=== PATIENT | female | born 1975 | race Caucasian/White ===

== ENCOUNTER 2018-12-09 11:57 | Day surgery (SDC) | payer OTHER ==
[~2018-12-09] VITALS: Ht 165.1 cm; Wt 89.0 kg
[~2018-12-09 11:57] MED LIST: AZAT50; DIPH50; DULO30; INFLECTRA100 MG; Methotrexa25 MG/1 ML; PRED5
--- NOTE | 2018-12-09 17:02 | NUR ---
12/09/18 1702 Tony Rogers LATE ENTRY NARRATIVE PATIENT RESTING IN SDU RECLINER, VSS, TOLERATING PO FLUIDS WELL, MOTHER AND FRIEND AT CHAIRSIDE. DISCHARGE INSTRUCTIONS REVIEWED WITH PATIENT, MOTHER AND FRIEND, NO QUESTIONS AT THIS TIME. NURSE ASSISTED PATIENT WALK OUT TO HER RIDE HOME.
== END 2018-12-09 14:11 | disposition home or self-care (01) ==
LOC: ORSCSDS 11:57
PROVIDERS: Ophthalmology
PROC: 08RK3JZ Replacement of Left Lens with Synthetic Substitute, Percutaneous Approach (ICD-10-PCS; principal; 2018-12-09 14:00)
DX: H25.12 Age-related nuclear cataract, left eye (principal); Z79.899 Other long term (current) drug therapy
CPT/HCPCS: J2001; J2250; J3010; V2632

== ENCOUNTER 2019-05-30 17:32 | Emergency (ER) | payer OTHER ==
[~2019-05-30] VITALS: Ht 165.1 cm; Wt 88.5 kg
[2019-05-30 17:57] LABS: BASOPHILS ABSOLUTE AUTO 0.03 K/mm3 (0.00-0.23); BASOPHILS PERCENT AUTO 0 % (0-2); EOSINOPHILS ABSOLUTE AUTO 0.17 K/mm3 (0.00-0.68); EOSINOPHILS PERCENT AUTO 2 % (0-6); Hematocrit 44.3 % (33.0-51.0); Hemoglobin 14.6 g/dL (11.5-16.0); IMMATURE GRAN ABSOLUTE AUTO 0.01 K/mm3 (0.00-0.10); IMMATURE GRAN PERCENT AUTO 0 % (0-1); LYMPHOCYTES ABSOLUTE AUTO 2.82 K/mm3 (0.84-5.20); LYMPHOCYTES PERCENT AUTO 36 % (21-46); MONOCYTES ABSOLUTE AUTO 0.77 K/mm3 (0.16-1.47); MONOCYTES PERCENT AUTO 10 % (4-13); Mean Corpuscular HGB 30.7 pg (26.0-34.0); Mean Corpuscular Volume 93 fL (80-100); Mean Platelet Volume 9.7 fL (9.1-12.4); NEUTROPHILS ABSOLUTE AUTO 3.96 K/mm3 (1.96-9.15); NEUTROPHILS PERCENT AUTO 51 % (41-73); Platelet Count 264 K/mm3 (150-400); RDW Coefficient Variation 12.4 % (11.7-14.2); RDW Standard Deviation 42.9 fL (35.1-46.3); Red Blood Cell Count 4.75 M/mm3 (3.80-5.20); White Blood Cell Count 7.76 K/mm3 (4.00-11.30)
[2019-05-30 18:19] LABS: Alanine Aminotransfer (ALT/SGP 30 U/L (12-78); Albumin, Blood 4.1 g/dL (3.4-5.0); Albumin/Globulin Ratio 1.1 (0.8-1.8); Alk Phos 61 U/L (50-136); Anion Gap 8 mmol/L (6-16); Aspartate Aminotrans (AST/SGOT 20 U/L (12-37); Bilirubin, Total 0.5 mg/dL (0.1-1.0); Blood Urea Nitrogen 15 mg/dL (8-24); Bun/Creatinine Ratio 14.2 (12.0-20.0); CO2, Blood 25 mmol/L (21-32); Chloride, Blood 105 mmol/L (98-108); Creatinine, Blood 1.06 mg/dL (0.40-1.00); Globulin, Blood 3.8 g/dL (2.2-4.0); Glomerular Filtration Rate >60 (60-); Glucose, Blood 107 mg/dL (70-99); Sodium, Blood 138 mmol/L (136-145); Total Protein, Blood 7.9 g/dL (6.4-8.2)
[2019-05-30] MEDS ORDERED: [UNRECOGNIZED DRUG - REMARK] (19:00)
[2019-05-30] MEDS ORDERED: PRED10 PO (19:33)
[2019-05-30] MEDS ORDERED: Percocet 5-3251 EACH PO (21:58)
[2019-07-20] MEDS ORDERED: DULO60 PO (12:34)
[2019-07-20] MEDS ORDERED: AZAT50 PO (12:35)
[2019-07-20] MEDS ORDERED: INFLECTRA100 MG IV (12:35)
== END 2019-05-30 23:11 | disposition home or self-care (01) ==
LOC: ER 17:32
PROVIDERS: Emergency Medicine
DX: K50.90 Crohn's disease, unspecified, without complications (principal); R19.00 Intra-abdominal and pelvic swelling, mass and lump, unspecified site; Z79.899 Other long term (current) drug therapy
CPT/HCPCS: 36415; 74177; 80053; 83690; 85025; 96361; 96374-59; 96375; 96376; 99284-25; A9270; J2270; J2405; J3010; J7030; Q9967

== ENCOUNTER 2019-07-28 11:43 | Day surgery (SDC) | payer OTHER ==
[~2019-07-28] VITALS: Ht 167.6 cm; Wt 88.1 kg
[~2019-07-28 11:43] MED LIST changes: +AZAT50 PO; +DULO60 PO; +INFLECTRA100 MG IV; +PRED10 PO; +Percocet 5-3251 EACH PO; +[UNRECOGNIZED DRUG - REMARK]
== END 2019-07-28 15:00 | disposition home or self-care (01) ==
LOC: ORSCSDS 11:43
PROVIDERS: Internal Medicine Gastroenterology
PROC: 0DBE8ZX Excision of Large Intestine, Via Natural or Artificial Opening Endoscopic, Diagnostic (ICD-10-PCS; principal; 2019-07-28 13:15)
PROC: 0DBB8ZX Excision of Ileum, Via Natural or Artificial Opening Endoscopic, Diagnostic (ICD-10-PCS; principal; 2019-07-28 13:15)
DX: K50.80 Crohn's disease of both small and large intestine without complications (principal); K64.8 Other hemorrhoids; F43.10 Post-traumatic stress disorder, unspecified; Z79.899 Other long term (current) drug therapy
CPT/HCPCS: 88305; J2704; J7120

== ENCOUNTER → 2019-09-30 | Outpatient (CLI) | payer OTHER ==
[~2019-09-30] MED LIST changes: +ALBU90OI INH; +BENZ100A PO
[2019-10-04 15:07] LABS: HPV 16 Negative (Negative); HPV 18 Negative (Negative); HPV OTHER HR TYPES Positive (Negative)
== END | disposition home or self-care (01) ==
LOC: LAB SHORT 09:45 → PLD 09:45
PROVIDERS: Obstetrics & Gynecology
DX: Z01.419 Encounter for gynecological examination (general) (routine) without abnormal findings (principal)
CPT/HCPCS: 87624; 87625; G0123

== ENCOUNTER 2019-11-06 18:52 | Emergency (ER) | payer OTHER ==
[~2019-11-06] VITALS: Ht 165.1 cm; Wt 85.7 kg
[~2019-11-06 18:52] MED LIST changes: -ALBU90OI INH; -BENZ100A PO
[2019-11-06] MEDS ORDERED: BENZ100A PO ×2 (18:59→19:02)
[2019-11-06] MEDS ORDERED: ALBU90OI INH ×2 (18:59→19:02)
== END 2019-11-06 19:00 | disposition home or self-care (01) ==
LOC: ER 18:52
DX: J40 Bronchitis, not specified as acute or chronic (principal); Z79.899 Other long term (current) drug therapy
CPT/HCPCS: 99283

== ENCOUNTER → 2019-11-08 | Outpatient (CLI) | payer OTHER ==
[~2019-11-08] MED LIST changes: +ALBU90OI INH; +BENZ100A PO
== END | disposition home or self-care (01) ==
LOC: PLD 14:50 → LAB SHORT 14:50
DX: N84.1 Polyp of cervix uteri (principal); R87.610 Atypical squamous cells of undetermined significance on cytologic smear of cervix (ASC-US)
CPT/HCPCS: 88305